=== PATIENT | female | born 1980 | race Caucasian/White ===

== ENCOUNTER 2019-04-01 03:55 | Inpatient (IN) | payer SELFPAY ==
[2019-04-01 05:55] LABS: Hemoglobin 12.1 g/dL (12.0-16.0); Mean Corpuscular HGB CONC 33.6 g/dL (32.0-36.0); Mean Corpuscular Hemoglobin 30.9 pg (27.0-31.0); Mean Platelet Volume 8.4 fL (7.4-10.4); Platelet Count 160 thou/uL (130-400); RBC Distribution Width 12.3 % (11.5-14.5); Red Blood Cell (RBC) Count 3.91 mill/uL (4.20-5.40); White Blood Cell (WBC) Count 15.2 thou/uL (4.8-10.8)
[2019-04-01] MEDS ORDERED: Lidocaine 1% (PF) 30 ML VIAL ONE (05:57)
[2019-04-01] MEDS ORDERED: NS / Oxytocin 40 units/1000ml 1,000 ML ONE (05:57)
[2019-04-01] MEDS ORDERED: Fentanyl 4 mcg/Bup 0.1% Cadd 100 ML ONE (06:16)
[2019-04-01] MEDS ORDERED: Lidocaine 1% (PF) 30 ML VIAL SC PRN (06:17)
[2019-04-01] MEDS ORDERED: Ibuprofen 800 MG TAB PO PRN (06:17)
[2019-04-01] MEDS ORDERED: Promethazine HCl 25 MG/ML VIAL IM PRN ×2 (06:17→06:56)
[2019-04-01] MEDS ORDERED: HYDROcodone/Acetaminophen 5/325 mg Tablet PO PRN ×2 (06:17)
[2019-04-01] MEDS ORDERED: Butorphanol Tartrate 1 MG/ML VIAL SLOW IVP PRN (06:17)
[2019-04-01] MEDS ORDERED: Ondansetron PF 4 MG/2 ML Vial IVP PRN ×2 (06:17→06:56)
[2019-04-01] MEDS ORDERED: NS w/ Oxytocin 10 units 500 ML IV SCH (06:30)
[2019-04-01] MEDS ORDERED: Lactated Ringer's 1,000 ML IV SCH (06:30)
[2019-04-01 06:33] LABS: Syphilis Antibody Nonreactive (Nonreactive); Syphilis Antibody Index 0.04 S/CO (<1.00 Non-Reactive)
[2019-04-01 06:34] LABS: HBSAg Index 0.31 S/CO (0-0.99); Hep B Surf Ag Non-Reactive S/CO (NonReactive)
[2019-04-01] MEDS ORDERED: Eucerin (Mineral Oil/Petrolatum,White) 30 gm Jar TOP PRN (06:56)
[2019-04-01] MEDS ORDERED: Lactated Ringer's 500 ML IV PRN (06:56)
[2019-04-01] MEDS ORDERED: ePHEDrine/0.9% NaCl/PF SYRINGE 50 mg/10 ml SLOW IVP PRN (06:56)
[2019-04-01] MEDS ORDERED: Acetaminophen 325 MG TAB PO PRN (06:56)
[2019-04-01] MEDS ORDERED: diphenhydrAMINE 50 MG/ML VIAL IVP PRN (06:56)
[2019-04-01] MEDS ORDERED: Naloxone HCl 0.4 mg/ml Vial IVP PRN ×2 (06:56)
[2019-04-01] MEDS ORDERED: Communication Order-Pharmacy FS SCH (07:00)
[2019-04-01] MEDS ORDERED: Fentanyl 4 mcg/Bupivacaine 0.1% Cassette 100 ML EPIDURAL SCH (07:00)
[2019-04-01 07:13] VITALS: BMI 28.1
[2019-04-01] MEDS ORDERED: Carboprost 250 MCG/ML AMP ONE (07:24)
[2019-04-01] MEDS ORDERED: Methylergonovine 0.2 MG/ML VIAL ONE (07:24)
[2019-04-01] MEDS ORDERED: Misoprostol 200 MCG TAB ONE (07:24)
[2019-04-01] MEDS: NS / Oxytocin 40 units/1000ml 1,000 ML IV PRN ×2 (08:00→09:35)
[2019-04-01] MEDS: Lactated Ringer's 1,000 ML IV SCH (10:52)
[2019-04-01] MEDS ORDERED: Bupivacaine HCl 0.25%/Epi 0.0005/PF 10 ML VIAL FS ONE (18:00)
[2019-04-02] MEDS: Lactated Ringer's 1,000 ML IV SCH ×2 (05:21→10:08)
[2019-04-02 08:16] VITALS: BP 100/56; TEMP 97.8
--- NOTE | 2019-04-02 09:26 | PDOC.PP ---
Post Progress Note Post Day #: 1 Subjective: Doing well, had some cramping overnight but feeling better now. Lochia normal. PO intake tolerated: yes Flatus: yes Ambulation: yes Vital Signs (12 hours) Temp Pulse Resp BP Pulse Ox 04/02/19 08:15 97.8 F 68 20 100/56 L 96 Weight Weight 180 lb - Physical Examination General: NAD Cardiovascular: no m/r/g, RRR Respiratory: clear to auscultation bilaterally, non-labored breathing Abdominal: + bowel sounds, lochia, no distention, appropriately TTP Result Diagrams: 04/01/19 05:43 Additional Labs: Post Labs Blood Type O NEGATIVE 04/01/19 05:43 Hep Bs Antigen Non-Reactive S/CO (NonReactive) 04/01/19 05:43 (1) Normal vaginal delivery Code(s): O80 - ENCOUNTER FOR FULL-TERM UNCOMPLICATED DELIVERY Status: Acute - Assessment/Plan Routine PP care Doing well Ready to go home F/U in 6 weeks.
== END 2019-04-02 12:40 | disposition home or self-care (01) | DRG 807 ==
LOC: L&D/OP 03:55 → L&D-LIB 04:35 → L&D 06:23 → 3SW 10:26
PROVIDERS: ADMIT Family Medicine; ATTEND Family Medicine
PROC: 10E0XZZ Delivery of Products of Conception, External Approach (ICD-10-PCS; principal; 2019-04-01)
DX: O69.81X0 Labor and delivery complicated by cord around neck, without compression, not applicable or unspecified (principal); Z37.0 Single live birth; O48.0 Post-term pregnancy; Z3A.41 41 weeks gestation of pregnancy
CPT/HCPCS: 85027; 86780; 86850; 86900; 86901; 87340; 99285; J2001; J2210; J3490